=== PATIENT | male | born 1965 | race Caucasian/White ===

== ENCOUNTER 2025-04-26 19:36 | Inpatient (IN) | payer OTHER, SELFPAY ==
[2025-04-26] VITALS (13 sets, daily range): BP systolic 136–217; BP diastolic 80–127; BMI 42.8; BMI 41.6
[2025-04-26 15:44] LABS: Hematocrit 43.8 % (39.0-52.0); Hemoglobin 15.2 g/dL (13.0-18.0); Mean Corp Hgb Conc. 34.7 g/dL (33.0-37.0); Mean Corpuscular Volume 90.1 fL (80.0-94.0); Nucleated Red Blood Cells % 0 % (-); Platelet Count 291 10^3/uL (130-400); Red Cell Dist. Width 12.2 % (11.5-14.5)
[2025-04-26 16:00] LABS: ALT (SGPT) 62 U/L (0-50); AST (SGOT) 32 U/L (17-59); Albumin 4.6 g/dl (3.5-5.0); Alkaline Phosphatase 60 U/L (38-126); Blood Urea Nitrogen 19 mg/dl (9-20); Calcium 10.0 mg/dl (8.4-10.2); Carbon Dioxide 27 mmol/L (22-30); Glucose 123 mg/dl (70-99); Lipase 56 U/L (23-300); Total Protein 7.4 g/dl (6.3-8.2); eGFR > 60.00
[2025-04-26 16:08] LABS: Chloride 106 mmol/L (98-107); Sodium 140 mmol/L (135-145)
[2025-04-26 16:15] LABS: Potassium 3.8 mmol/L (3.5-5.1)
--- NOTE | 2025-04-26 17:20 | ED.GENMED ---
History of Present Illness
General
Chief Complaint: Rectal Bleeding
Source: patient and spouse
Exam Limitations: none
Time Seen by Provider: 04/26/25 16:58
Nursing documentation reviewed up to this point in time: agreed with
History of Present Illness
History of Present Illness:
Patient with history of hypertension, presents to ED secondary to multiple episodes of bright red blood per rectum with lower abdominal cramping sensation since this afternoon. Patient does not take any blood thinning medications. Denies nausea or
vomiting. Denies trauma. Denies previous history of similar symptoms. Denies recent change in medications or diet. Patient has had colonoscopy in the past, with most recent in 2019 secondary to hemorrhoids.
Review of Systems
Review of Systems
Allergies reviewed?: Yes
All Other Systems: ROS reviewed and negative except as documented in HPI and ROS
Constitutional: Reports no symptoms; Denies fever
Respiratory: Denies trouble breathing
Cardiac: Reports no symptoms
ABD/GI: Reports abdominal pain and bloody stools; Denies vomiting or diarrhea
Musculoskeletal: Reports no symptoms
Skin: Reports no symptoms
Neurological: Reports no symptoms; Denies dizzy or weakness
Phy Exam
Physical Exam
Physical Exam:
Physical Exam
General: no apparent distress, not acutely ill. afebrile
Head: nc/at. eomi
Neck: supple. no meningeal signs.
Heart: s1/s2 regular rate and rhythm
Lungs: no acute respiratory distress. clear bilaterally
Abdomen: normal bowel sounds. not tender. rectal exam-deferred
Neuro: alert and oriented x 3. no focal neurological deficits
Skin: no rash
Psychiatric: well kept. interactive and cooperative
Extremities: no edema. no calf tenderness.
Course
Orders/Labs/Results
Orders:
Orders
04/26/25 Dinner
Full Liquids
At Your Request: Full Participation
Does patient need a safe tray?: No
04/26/25 15:31
Type And Crossmatch [Type+Screen] Urgent
Complete Blood Count/With Diff Urgent
Comprehensive Metabolic Panel Urgent
Lipase Urgent
04/26/25 17:08
0.9% Sodium Chloride 500 ml [Nss] 500 ml IV BOLUS
Pantoprazole [Protonix IV] 40 mg IV NOW STA
04/26/25 17:09
CT Angio Abd/Pelvis w/wo IV [CT Abd/pelvis Angio W/wo Iv] Urgent
Comment:
Reason For Exam: rectal bleeding
04/26/25 17:21
ABO2 Routine
BBK Wristband Number:
Associate notified that ABO2 has been ordered: [id number]
Date: 04/26/25
Time: 15:52
Pot Operator ID: [id number]
04/26/25 17:49
Pantoprazole [Protonix IV] 40 mg IV NOW STA
04/26/25 17:50
Pantoprazole [Protonix IV] 40 mg .ROUTE .STK-MED ONE
04/26/25 19:11
Admit/Transfer Patient As Directed
Co-Sign Provider:
Level of Care: Inpatient admission
Assign to:: Medical/Surgical
Physician / Group: margaret escobar
Diagnosis: acute colitis
Reason for Hospitalization: acute colitis
Expected length of stay greater than two midnights?: Yes
ELOS- Estimated Length of Stay in days: 3
I certify the patient meets the requirements for IP care: Yes
Code Status As Directed
Resuscitation Status: Full Code
04/26/25 19:12
PRN Pain Medication Management As Directed
May give lesser potent ordered pain med per pt: Yes
preference::
Protocol:: Medication orders for pain may be administered in a
manner that supports deferring to patient preference
when the pt is:
- Requesting an ordered lesser potent pain medication.
Least to most potent pain medications are defined
as: acetaminophen < NSAID < tramadol < opioids
(morphine, oxycodone, hydromorphone).
- Requesting a lesser dose of the same medication IF
ORDERED.
- Requesting a less intrusive route of administration
if both routes are prescribed by the provider (PO <
IV).
04/26/25 19:13
Piperacillin/Tazo 3.375 Gram [Zosyn] 3.375 gram in 50 ml IV NOW
04/26/25 19:23
GASTROINTESTINAL CONSULT Routine
Consulting Provider: Víctor Rodriguez
Was physician already notified: Yes
Reason for consult: Left-sided colitis
04/26/25 21:01
Acetaminophen [Tylenol] 650 mg PO Q4HPRN PRN
04/26/25 21:01
Activity As Directed
Activity Level: As Tolerated
Pneumatic Compression Sleeves As Directed
Type: Knee high
Vital Signs As Directed
Frequency: Per unit guidelines
DX Deep Vein Thrombosis Video Routine
04/27/25 02:00
Piperacillin/Tazo 3.375 Gram [Zosyn] 3.375 gram in 50 ml IV Q6H
04/27/25 06:00
Basic Metabolic Panel IN AM
Complete Blood Count/With Diff IN AM
04/28/25 06:00
Basic Metabolic Panel IN AM
Complete Blood Count/With Diff IN AM
04/29/25 06:00
Basic Metabolic Panel IN AM
Complete Blood Count/With Diff IN AM
Abnormal Lab Results
04/26/25
15:31
WBC 11.1 H 10^3/uL
(4.8-10.8)
MCH 31.3 H pg
(27.0-31.0)
Absolute Neuts (auto) 8.8 H 10^3/uL
(1.4-6.5)
Absolute Monos (auto) 0.8 H 10^3/uL
(0.1-0.6)
Neutrophils % 79.2 H %
(42.2-75.2)
Lymphocytes % 12.4 L %
(20.5-51.1)
Creatinine 0.6 L mg/dL
(0.7-1.3)
Glucose 123 H mg/dl
(70-99)
ALT 62 H U/L
(0-50)
04/26/25 15:31
04/26/25 15:31
Vital Signs
Initial and Last Documented VS:
Initial Vital Signs
Temp Pulse Resp BP Pulse Ox
98.7 F 96 18 217/127 98
04/26/25 15:22 04/26/25 15:22 04/26/25 15:22 04/26/25 15:22 04/26/25 15:22
Last Documented Vital Signs
Temp Pulse Resp BP Pulse Ox
98.1 F 73 18 158/90 95
04/26/25 22:44 04/26/25 22:44 04/26/25 22:44 04/26/25 22:44 04/26/25 22:44
MDM/Problems Addressed
MDM/Problems Addressed:
History, exam, and CT scan consistent with likely colitis contributing to patient's multiple bloody bowel movements. Initial hemoglobin noted. Patient remains hemodynamically stable. Patient will be admitted for IV antibiotics. On-call GI
physician, Dr. Rodriguez, notified via [place] text.
*Pulse Oximetry
SaO2: 98
Oxygen Mode of Delivery: Room air
Patient hypoxic: no
*Critical Care Note
Total Time (30-74mins, 75-104mins- exclusive of procedures): Not Applicable
ED Attending Note
-
Portions of this chart may have been created with voice recognition software.� Occasional wrong word or��sound alike� substitutions may have occurred due to the inherent limitations of voice recognition software.
Discharge Plan
Departure
Patient Disposition: Admit
Date of Disposition: 04/26/25
Time of Disposition: 18:36
Admit to: Telemetry
Presentation/result/management discussed w/ accepting MD/DO: Hospitalist
Discharge Problem:
Rectal bleed, Colitis
Interventions
Interventions:
*Risk Screen - Suicide Last Done: 04/26/25 15:22
*General Assessment Last Done: 04/26/25 15:22
*Neglect/Abuse Screening Last Done: 04/26/25 15:22
*ED- Fall Risk Assessment Last Done: 04/26/25 17:57
*ED COVID-19 Vaccine History Last Done: 04/26/25 17:57
*Nursing Disposition Last Done: 04/26/25 22:41
PC-Etvlhx-Nwrwxgmtlf Assessment Last Done: 04/26/25 17:30
ED- Cardiac Assessment Last Done: 04/26/25 17:30
ED- Pulmonary Assessment Last Done: 04/26/25 17:30
Discharge Date and Time
Discharge Date/Time: 04/26/25 22:42
[2025-04-26] MEDS: NSS 500 IV (17:27)
[2025-04-26] MEDS: PROTONIX IV 40 MG IV ×2 (17:56→18:07)
--- NOTE | 2025-04-26 18:43 | HPS.HSE ---
Family Physician
-
Family Physician: Benigno May
Chief Complaint
-
Bright red blood per rectum
History of Present Illness
60-year-old male from home complaining of 10 episodes of bright red blood per rectum and lower abdominal cramping since this afternoon. He is not on any aspirin or NSAIDs. He denies fever, chills, chest pain, palpitations, cough, shortness of
breath, nausea, vomiting. He has past medical history of hemorrhoids, benign polyps history of colonoscopy 2019, HTN, seasonal allergies, vitamin D deficiency, class III obesity,History diverticulosis history of benign colon polyps follows with
Brandy at [facility]
Medical History
Past Medical History
Past Medical History: Reports Other
Additional Past Medical History:
hemorrhoids history of colonoscopy 2019
History diverticulosis history of benign colon polyps follows with Dr. Nava at [facility]
HTN
seasonal allergies
vitamin D deficiency
Class III obesity
Past Surgical History: Reports Other
Additional Past Surgical History:
Benign multiple dermal skin lesions to scalp
Bilateral CTR
Partial spinal discectomy T11-T12
Bilateral inguinal hernia repair with mesh
Right shoulder bicep repair and rotator cuff repair
Social History
Tobacco: Non-smoker
Alcohol: None
Drug: None
Personal:
Living: With Family ()
Employment: Employed
Family History
Family History: Not pertinent
Allergies / Home Medications
Allergies reflects when Allergies were last updated in AppSheet.
Home Medications with original date entered in AppSheet
Allergy/Medication List:
Allergies
Allergy/AdvReac Type Severity Reaction Status Date / Time
bee venom protein (honey bee) Allergy Unknown Verified 04/26/25 18:01
cat dander Allergy Unknown Verified 04/26/25 18:01
Home Medications
cholecalciferol (vitamin D3) 50 mcg (2,000 unit) capsule 50 mcg PO DAILY 04/26/25
fexofenadine 180 mg tablet 180 mg PO DAILYPRN PRN allergies 04/26/25
losartan 100 mg-hydrochlorothiazide 25 mg tablet (Hyzaar) 1 tab PO DAILY 04/26/25
jvgoblbsamqf-fzoqfouh-nmsfme tablet 1 tab PO DAILY 04/26/25
Review of Systems
-
History Source: Patient and Family ( at bedside)
A 12 point ROS was completed and negative except as noted: Yes
Constitutional: Denies Chills
EENT: Denies Sore Throat or Runny Nose
Respiratory: Denies Cough or Trouble Breathing
Cardiac: Denies Chest Pain, Diaphoresis, Palpitations or Syncope
Abdomen/GI: Reports Abdominal Pain (Left lower quadrant) and Bloody Stools (Bright red blood per rectum x 10); Denies Nausea, Vomiting, Diarrhea or Constipated
: Denies Dysuria, Frequency, Flank Pain, Incontinence, Difficulty Voiding or Urgency
Musculoskeletal: Denies Joint Pain or Edema
Skin: Denies Itching or Rash
Neurological: Denies Dizzy, Headache or Weakness
Endocrine: Reports No Symptoms
Hematologic/Lymphatic: Reports No Symptoms
Psych: Reports Calm
Physical Exam
Vital Signs
Vital Signs
Temp Pulse Resp BP Pulse Ox
98.7 F 71 18 151/85 93
04/26/25 15:22 04/26/25 18:29 04/26/25 17:28 04/26/25 18:30 04/26/25 18:29
Physical Exam
General: Conversant and Morbidly Obese; No Fever or Chills
HEENT: NormoCephalic, Anicteric, Moist mucous membranes, PERRLA, [place] Conjunctivae and No Ptosis
Respiratory: Clear; No Wheezes, Rales or Rhonchi
Cardiac: S1/S2 and Regular Rhythm; No Murmur, Rub, Gallop or Peripheral Edema
Breast: Deferred by me
GI: Soft, Tender (Left lower quadrant) and No Hepatosplenomegaly
Genito-urinary: Deferred by me
Musculoskeletal: No Clubbing, No Cyanosis and No Edema
Skin: Warm and Dry; No Rash
Neuro: AO x 3, No Motor Deficits, Nonfocal/grossly intact, Cranial Nerves Intact and No Sensory Deficits; No Facial Droop, Tremors or Sedated
Psych: Calm
Laboratory Results
-
04/26/25 15:31
04/26/25 15:31
Laboratory Results
Total Bilirubin 0.7 mg/dl (0.2-1.3) 04/26/25 15:31
AST 32 U/L (17-59) 04/26/25 15:31
ALT 62 U/L (0-50) H 04/26/25 15:31
Alkaline Phosphatase 60 U/L (38-126) 04/26/25 15:31
Lipase 56 U/L (23-300) 04/26/25 15:31
Impression/Plan
-
Impression/plan:
Admit to [facility]
#Acute left-sided colitis with bright red blood per rectum
#History diverticulosis history of benign colon polyps follows with Dr. Nava at [facility]
WBC 11.1 with left shift, 98.7F
Hgb stable 15.2
-IV Zosyn
- Full liquid diet
CT abdomen pelvis with without IV contrast:
1. No CTA evidence for active GI bleed. No abdominal aortic aneurysm or dissection.
2. Acute uncomplicated left-sided colitis, likely of infectious/inflammatory etiology.
#HTN
BP 151/85
Continue losartan hold HCTZ
#Seasonal allergies
Continue Lindsay 180 mg daily as needed
#Vitamin D deficiency
Continue vitamin D3 2000 units daily
Class III obesity�BMI 42.8
Affects all aspects of care
Weight loss recommended
DVT prophylaxis
SCDs
Full code
--- NOTE | 2025-04-26 19:26 | W.PN.UPDATE ---
Update Note
Progress Note Update
This is an addendum to H&P written by Magi Maurer on 04/26/2025. �Patient seen and examined independently with DIPPER OPERATOR.
60-year-old male past medical history of hemorrhoids, diverticulosis, hypertension, presenting with 10 episodes of bright red blood per rectum and lower abdominal cramping.
Blood pressure initially 217/127 improved to 151/85.
Labs show leukocytosis.
CT angio abdomen pelvis shows no active evidence of GI bleeding. �There is acute uncomplicated left-sided colitis.
Patient with acute left-sided colitis with hematochezia possibly infectious. �Check stool studies. �Zosyn started. �GI consulted. Full Liquid diet.�
[2025-04-26] MEDS: ZOSYN 50 IV (19:47)
[2025-04-27] MEDS: ZOSYN 50 IV ×4 (02:16→21:33)
[2025-04-27 06:28] LABS: Hematocrit 40.8 % (39.0-52.0); Hemoglobin 14.0 g/dL (13.0-18.0); Mean Corp Hgb Conc. 34.3 g/dL (33.0-37.0); Mean Corpuscular Volume 90.7 fL (80.0-94.0); Nucleated Red Blood Cells % 0 % (-); Platelet Count 240 10^3/uL (130-400); Red Cell Dist. Width 12.6 % (11.5-14.5)
[2025-04-27 06:55] LABS: Blood Urea Nitrogen 17 mg/dl (9-20); Calcium 9.2 mg/dl (8.4-10.2); Carbon Dioxide 29 mmol/L (22-30); Chloride 105 mmol/L (98-107); Estimated Creatinine Clearance > 125 ml/min; Glucose 144 mg/dl (70-99); Potassium 3.7 mmol/L (3.5-5.1); Sodium 130 mmol/L (135-145); eGFR > 60.00
[2025-04-27 07:00] VITALS: BP 155/91
--- NOTE | 2025-04-27 08:34 | W.PN.HOSP.TC ---
Today's Communication/Plan
-
see a/p
Assessment / Plan
Assessment / Plan
Physical Exam
General: no acute distress, appears comfortable at this time, Morbidly Obese
HEENT: NormoCephalic, Anicteric, Moist mucous membranes, PERRLA, [place] Conjunctivae and No Ptosis
Respiratory: Clear; No Wheezes, Rales or Rhonchi
Cardiac: S1/S2 and Regular Rhythm; No Murmur, Rub, Gallop or Peripheral Edema
GI: Soft, Tender (Left lower quadrant) and No Hepatosplenomegaly
Musculoskeletal: No Clubbing, No Cyanosis and No Edema
Skin: Warm and Dry; No Rash
Neuro: AO x 3 Conversant Coherent
Psych: Calm
HPI: 60-year-old male from home complaining of 10 episodes of bright red blood per rectum and lower abdominal cramping since this afternoon. He is not on any aspirin or NSAIDs. He denies fever, chills, chest pain, palpitations, cough, shortness of
breath, nausea, vomiting. He has past medical history of hemorrhoids, benign polyps history of colonoscopy 2019, HTN, seasonal allergies, vitamin D deficiency, class III obesity,History diverticulosis history of benign colon polyps follows with
Brandy at [facility]
#Acute left-sided colitis with bright red blood per rectum
#History diverticulosis history of benign colon polyps follows with Dr. Nava at [facility]
-empiric IV Zosyn
-Full liquid diet
CT abdomen pelvis with without IV contrast:
1. No CTA evidence for active GI bleed. No abdominal aortic aneurysm or dissection.
2. Acute uncomplicated left-sided colitis, likely of infectious/inflammatory etiology.
#HTN
Continue losartan HCTZ reduced dose for now
hydralazine prn
#Seasonal allergies
#Vitamin D deficiency
Continue supplementation
Class III obesity�BMI 42.8
Affects all aspects of care
Weight loss recommended
DVT prophylaxis
SCDs
Full code
I spent a total of 45 minutes with the patient or on the floor. More than 50% of this time involved counseling and coordination of care.
Anticipated Discharge: 24 - 48 hours
Subjective/Interval History
-
Date of Service: April 27, 2025
No acute distress, appears comfortable at this time. Reports headache and recent small bloody bowel movement. Tolerating diet.
Objective Data
-
Labs:
Laboratory Results
04/27/25
06:07
WBC 7.6
Hgb 14.0
Hct 40.8
Plt Count 240
Sodium 130 L D
Potassium 3.7
Chloride 105
Carbon Dioxide 29
BUN 17
Creatinine 0.7
Glucose 144 H
Calcium 9.2
Vital Signs:
Vital Signs
Temp Pulse Resp BP Pulse Ox
97.9 F 66 20 155/91 93
04/27/25 07:00 04/27/25 07:00 04/27/25 07:00 04/27/25 07:00 04/27/25 07:00
[2025-04-27] MEDS: TYLENOL 1000 MG PO (11:41)
[2025-04-27] MEDS: ORETIC 12.5 MG PO (11:41)
[2025-04-27] MEDS: COZAAR 50 MG PO (11:41)
--- NOTE | 2025-04-27 13:32 | CM ---
Patient seen at bedside with Kerrie
IA completed
lives with in a 2 story home, 2 MAHESH, flight to bed/bath
PLOF: independent
Denies DME
Denies VN/Rehab
Denies insecurities
PCP: Benigno May Jr.
Pharmacy: [address], [place]
Plan: Home, no needs anticipated when stable
will transport
--- NOTE | 2025-04-27 13:51 | CON.GI ---
Consultation
-
Date/Time Consultation Requested: 04/26/25, 19:23
Date/Time Consultation Performed: 04/26/25, 1:52 PM
Requesting Provider: FLORES Ortega
Performing Provider: Dr. Víctor Rodriguez DO
Reason for Consultation: Bloody stools, c/f colitis
Medical History
Chief Complaint / HPI
Chief Complaint: BRBPR
History of Present Illness:
Mr. Landon is a 60 y.o male with a past medical history of HTN, obesity, colon polyps, and history of diverticulosis who presented with multiple episodes of bright red blood per rectum. Gastroenterology has been consulted for further evaluation
and management.
Patient states he was in his USOH until yesterday afternoon when he began experiencing lower abdominal discomfort, cramping and multiple episodes of bright red blood per rectum. He denies ever having symptoms like this in the past. No other NSAIDs
or blood thinners. He denies any recent or new medications or prior antibiotics. No travel history or other known sick contacts. No other fevers, chills, night sweats or other constitutional symptoms. Denies any lightheadedness or passing out or
dehydration. Denies any unintentional weight loss. He notes a prior colonoscopy about 5 years who in 2019 which was reportedly significant for hemorrhoids and benign colon polyps. He follows with Dr Nava at [place] (colorectal). Denies any
family history of CRC or IBD. Notes that given his ongoing worsening symptoms, he came into the ED for further evaluation.
In the ED, patient was afebrile and HD-stable. Labs grossly unremarkable except for CBC with WBC 11.[address] Abd/pelvis Angio WWO contrast was (-) for active GI bleed, only revealing acute, uncomplicated left-sided colitis, felt to be
infectious/inflammatory etiology. Patient was admitted to medicine and started on IV abx.
Past Medical History
Past Medical History: Other (History diverticulosis history of benign colon polyps follows with Dr. Nava at [place] colorectal HTN seasonal allergies vitamin D deficiency Class III obesity)
Past Surgical History: Other (Benign multiple dermal skin lesions to scalp Bilateral CTR Partial spinal discectomy T11-T12 1990s Bilateral inguinal hernia repair with mesh Right shoulder bicep repair and rotator cuff repair)
Social History
Tobacco: Non-Smoker
Alcohol: Occasional
Family History
Family History: Other (No family hx of CRC or IBD)
Allergies / Home Medications
Allergy/AdvReac Type Severity Reaction Status Date / Time
bee venom protein (honey bee) Allergy Unknown Verified 04/26/25 18:01
cat dander Allergy Unknown Verified 04/26/25 18:01
�Medication �Instructions �Recorded
cholecalciferol (vitamin D3) 50 50 mcg PO DAILY 04/26/25
mcg (2,000 unit) capsule
fexofenadine 180 mg tablet 180 mg PO DAILYPRN PRN allergies 04/26/25
losartan 100 1 tab PO DAILY 04/26/25
mg-hydrochlorothiazide 25 mg
tablet (Hyzaar)
sqjtoknffdbl-yfwqjdbq-xwxouj tablet 1 tab PO DAILY 04/26/25
Review of Systems
-
All other systems: A 12 pt ROS was Negative except as stated above in HPI
Vital Signs
Temp Pulse Resp BP Pulse Ox
97.9 F 73 20 149/95 93
04/27/25 07:00 04/27/25 11:41 04/27/25 07:00 04/27/25 11:41 04/27/25 07:00
Physical Exam
Exam
General: Other (Obese male, comfortable appearing in bed)
HEENT: Normocephalic, Anicteric and Moist Mucous Membranes
Respiratory: Other (Normal WOB on room air)
Cardiac: Regular Rhythm
GI: Soft, Non Tender and Non Distended
Skin: Warm
Neuro: AO x 3 and Nonfocal/Grossly Intact
Psych: Calm
Results
WBC 7.6 10^3/uL (4.8-10.8) 04/27/25 06:07
Hgb 14.0 g/dL (13.0-18.0) 04/27/25 06:07
Hct 40.8 % (39.0-52.0) 04/27/25 06:07
MCV 90.7 fL (80.0-94.0) 04/27/25 06:07
Plt Count 240 10^3/uL (130-400) 04/27/25 06:07
Absolute Neuts (auto) 4.8 10^3/uL (1.4-6.5) 04/27/25 06:07
Sodium 130 mmol/L (135-145) L D 04/27/25 06:07
Potassium 3.7 mmol/L (3.5-5.1) 04/27/25 06:07
Chloride 105 mmol/L (98-107) 04/27/25 06:07
Carbon Dioxide 29 mmol/L (22-30) 04/27/25 06:07
BUN 17 mg/dl (9-20) 04/27/25 06:07
Creatinine 0.7 mg/dL (0.7-1.3) 04/27/25 06:07
Calcium 9.2 mg/dl (8.4-10.2) 04/27/25 06:07
Total Bilirubin 0.7 mg/dl (0.2-1.3) 04/26/25 15:31
AST 32 U/L (17-59) 04/26/25 15:31
ALT 62 U/L (0-50) H 04/26/25 15:31
Alkaline Phosphatase 60 U/L (38-126) 04/26/25 15:31
Lipase 56 U/L (23-300) 04/26/25 15:31
Diagnostic Image Results:
Prior GI Procedures:
Colonoscopy: No prior colonoscopy records for review, previous colonoscopy back in 2019 with polyps, diverticulosis and hemorrhoids
Assessment / Plan
-
Mr. Landon is a 60 y.o male with a past medical history of HTN, obesity, colon polyps, and history of diverticulosis who presented with multiple episodes of bright red blood per rectum with CT imaging demonstrating acute, uncomplicated left-sided
colitis. Gastroenterology has been consulted for further evaluation and management.
#Acute, Left-sided Colitis
#Bloody Stools
Impression: Patient presenting with abdominal discomfort and bloody stools found to have mild leukocytosis with left shift and CT imaging demonstrating mild, uncomplicated left-sided colitis. No chronicity of symptoms or previous similar symptoms in
the past. Last colonoscopy in 2019 with polyps, diverticulosis and hemorrhoids (no records of this). Denies any family history of IBD or CRC. Etiology seems most consistent with acute, infectious colitis given the acuity of symptoms versus ischemia
given his discomfort/bloody stools although not hypotensive/dehydrated. Much less likely IBD given his clinical presentation. Labs are grossly unremarkable and stable Hgb without any large volume hematochezia.
Recommendations:
- Okay for full liquids, may ADAT to low-fiber, low-residue diet as tolerated
- Please obtain stool studies if able to have a BM- stool culture, stool O&P, and C Diff
- Repeat LFTs in AM given mildly elevated ALT suspicious for MASLD/MASH given hepatic steatosis seen on CT
- Trend Hgb with serial CBC, although Hgb appears stable
- Started on empiric IV abx on admission
- No plans for a colonoscopy at this time given his reassuring labs, however would likely benefit from one as an outpatient
- Pain control and anti-emetics PRN
- Strict avoidance of all NSAIDs
- Rest of care as per primary team
GI will continue to follow. Please contact with any questions or concerns.
Data Reviewed
-
Radiology: Image Personally Visualized and interpreted and Report Reviewed by me
CT Scan: Image Personally Visualized and interpreted and Report Reviewed by me
-
-
Thank you for consultation and allowing me to participate in the patient's care. Please call the mass communications professor GI physician during the after hours with any questions or concerns.
[2025-04-27 15:00] VITALS: BP 156/90
--- NOTE | 2025-04-27 19:30 | PTCARENOTE ---
Assumed care of patient from previous RN. Patient to be transferred to telemetry per MD orders. Following rounds, patient placed on monitor car operator for PRN meds for BP. Initiated on monitor car operator #[id number] - maintained. At this time, patient reports
another BM in hat in bathroom -- bloody/mucous present. Patient states that this has been what they have looked like all day. Small amount. Stool cultures pending.
[2025-04-27 23:00] VITALS: BP 130/67
[2025-04-28] VITALS (7 sets, daily range): BP systolic 120–190; BP diastolic 71–97
[2025-04-28] MEDS: ZOSYN 50 IV ×2 (01:45→09:06)
--- NOTE | 2025-04-28 06:19 | W.PN.GI.CBS2 ---
Today's Communication / Plan
-
Improving on IV abx and likely acute infectious given symptoms. Given reassuring labs without further bloody stools/diarrhea, no plans for an inpatient colonoscopy. Reasonable to d/c later this afternoon versus tomorrow with close f/u with his
primary [facility] at [facility] (f/w with Dr Nava at [facility]). See rest of care as outlined below. GI will sign-off, please call back with any questions or concerns.
Assessment / Plan
-
Mr. Landon is a 60 y.o male with a past medical history of HTN, obesity, colon polyps, and history of diverticulosis who presented with multiple episodes of bright red blood per rectum with CT imaging demonstrating acute, uncomplicated left-sided
colitis. Gastroenterology has been consulted for further evaluation and management.
#Acute, Left-sided Colitis
#Bloody Stools
Impression: Patient presenting with abdominal discomfort and bloody stools found to have mild leukocytosis with left shift and CT imaging demonstrating mild, uncomplicated left-sided colitis. No chronicity of symptoms or previous similar symptoms in
the past. Last colonoscopy in 2020 with polyps, diverticulosis and hemorrhoids (no records of this). Denies any family history of IBD or CRC. Etiology seems most consistent with acute, infectious colitis given the acuity of symptoms versus ischemia
given his discomfort/bloody stools although not hypotensive/dehydrated. Much less likely IBD given his clinical presentation. Labs are grossly unremarkable and stable Hgb without any large volume hematochezia.
Stool studies: Moderate fecal leukocytes, C Diff (-), Cryptosporidium/giardia (-), and stool culture pending
Recommendations:
- May ADAT to low-fiber, low-residue diet
- Await rest of stool studies including stool culture
- Favor continuing empiric antibiotics given his resolved bloody stools and likely infectious and having more semi-formed brown stools
- No plans for an inpatient colonoscopy at this time. However, would benefit from an eventual colonoscopy as an outpatient in 6-8 weeks
- Fortunately, he has follow-up with his primary GI at [facility] this upcoming Wednesday for an appointment. Discussed close f/u and again will need an eventual colonoscopy to f/u his previous colitis
- May discharge with empiric oral antibiotics with Augmentin for 10 day course
- Advised avoidance of all NSAIDs
- Pain control and anti-emetics PRN
- Rest of care as per primary team
If ongoing improvement this afternoon and tolerating diet, reasonable to discharge later today. GI will sign-off. Please call back with any questions or concerns.
Subjective
Subjective
Date of Service: April 28, 2025
- Stool studies: Moderate fecal leukocytes, C Diff (-), Cryptosporidium/giardia (-), and stool culture pending
- Remains on IV Zosyn
- Otherwise, no acute events overnight
Feeling well, reports improving symptoms with antibiotics. No further bloody stools, having more semi-formed brown bowel movements (shows picture on phone). Otherwise, denies any abdominal pain or other nausea/vomiting.
Objective
Data Reviewed
Laboratory Data:
Laboratory Results
Total Bilirubin 0.7 mg/dl (0.2-1.3) 04/26/25 15:31
AST 32 U/L (17-59) 04/26/25 15:31
ALT 62 U/L (0-50) H 04/26/25 15:31
Alkaline Phosphatase 60 U/L (38-126) 04/26/25 15:31
Lipase 56 U/L (23-300) 04/26/25 15:31
Vital Signs and I&O:
Vital Signs
Temp Pulse Resp BP Pulse Ox
97.3 F 62 18 120/71 100
04/28/25 03:00 04/28/25 03:00 04/28/25 03:00 04/28/25 03:00 04/28/25 03:00
I&O
04/26/25 04/27/25 04/28/25
06:59 06:59 06:59
Intake Total 1440 / 1440
Balance 1440 / 1440
Physical Exam
Physical Exam
HEENT: Anicteric and Moist mucous membranes
Pulmonary: Other (Normal WOB on room air)
GI: Soft, Non Distended and Non Tender
Extremities: No Edema
Neuro: Non Focal
[2025-04-28 06:31] LABS: Hematocrit 42.2 % (39.0-52.0); Hemoglobin 14.3 g/dL (13.0-18.0); Mean Corp Hgb Conc. 33.9 g/dL (33.0-37.0); Mean Corpuscular Volume 90.6 fL (80.0-94.0); Nucleated Red Blood Cells % 0 % (-); Platelet Count 264 10^3/uL (130-400); Red Cell Dist. Width 12.5 % (11.5-14.5)
[2025-04-28 07:01] LABS: ALT (SGPT) 65 U/L (0-50); AST (SGOT) 30 U/L (17-59); Albumin 4.2 g/dl (3.5-5.0); Alkaline Phosphatase 57 U/L (38-126); Blood Urea Nitrogen 12 mg/dl (9-20); Calcium 9.0 mg/dl (8.4-10.2); Carbon Dioxide 27 mmol/L (22-30); Chloride 104 mmol/L (98-107); Estimated Creatinine Clearance 122 ml/min; Glucose 132 mg/dl (70-99); Magnesium 2.2 mg/dl (1.6-2.3); Potassium 4.0 mmol/L (3.5-5.1); Sodium 138 mmol/L (135-145); Total Protein 6.5 g/dl (6.3-8.2); eGFR > 60.00
--- NOTE | 2025-04-28 08:36 | W.PN.HOSP.TC ---
Today's Communication/Plan
-
Low residue diet
IV abx transitioned to Augmentin
Blood pressure control, home hyzaar POM resumed
possible discharge tomorrow if remains stable/cont to improve
Assessment / Plan
Assessment / Plan
Physical Exam
General: no acute distress, appears comfortable at this time, Morbidly Obese
HEENT: NormoCephalic, Anicteric, Moist mucous membranes, PERRLA, [place] Conjunctivae and No Ptosis
Respiratory: Clear; No Wheezes, Rales or Rhonchi
Cardiac: S1/S2 and Regular Rhythm; No Murmur, Rub, Gallop or Peripheral Edema
GI: Soft, Tender (Left lower quadrant) and No Hepatosplenomegaly
Musculoskeletal: No Clubbing, No Cyanosis and No Edema
Skin: Warm and Dry; No Rash
Neuro: AO x 3 Conversant Coherent
Psych: Calm
HPI: 60-year-old male from home complaining of 10 episodes of bright red blood per rectum and lower abdominal cramping since this afternoon. He is not on any aspirin or NSAIDs. He denies fever, chills, chest pain, palpitations, cough, shortness of
breath, nausea, vomiting. He has past medical history of hemorrhoids, benign polyps history of colonoscopy 2019, HTN, seasonal allergies, vitamin D deficiency, class III obesity,History diverticulosis history of benign colon polyps follows with
Brandy at [facility]
#Acute left-sided colitis with bright red blood per rectum
#History diverticulosis history of benign colon polyps follows with Dr. Nava at [facility]
-empiric IV Zosyn transitioned to Augmentin, planned for total 10 day course abx
-Full liquid diet advanced to low residue, tolerating
CT abdomen pelvis with without IV contrast:
1. No CTA evidence for active GI bleed. No abdominal aortic aneurysm or dissection.
2. Acute uncomplicated left-sided colitis, likely of infectious/inflammatory etiology.
#HTN
home hyzaar resumed, patient's own med
hydralazine prn
#Seasonal allergies
#Vitamin D deficiency
Continue supplementation
Class III obesity�BMI 42.8
Affects all aspects of care
Weight loss recommended
DVT prophylaxis
SCDs
Full code
I spent a total of 45 minutes with the patient or on the floor. More than 50% of this time involved counseling and coordination of care.
Anticipated Discharge: Within 24 hours
Subjective/Interval History
-
Date of Service: April 28, 2025
No acute distress, appears comfortable. Reports improving bloody bowel movements (icing coater color more brown).
Objective Data
-
Labs:
Laboratory Results
04/28/25
06:10
WBC 8.5
Hgb 14.3
Hct 42.2
Plt Count 264
Sodium 138 D
Potassium 4.0
Chloride 104
Carbon Dioxide 27
BUN 12
Creatinine 0.8
Glucose 132 H
Calcium 9.0
Total Bilirubin 0.8
AST 30
ALT 65 H
Alkaline Phosphatase 57
Vital Signs:
Vital Signs
Temp Pulse Resp BP Pulse Ox
97.7 F 86 18 168/89 95
04/28/25 08:00 04/28/25 08:00 04/28/25 08:00 04/28/25 08:00 04/28/25 08:00
I&O
04/27/25 04/28/25 04/29/25
06:59 06:59 06:59
Intake Total 1440 / 1440 620 / 620
Balance 1440 / 1440 620 / 620
[2025-04-28] MEDS: VITAMIN D3 (cholecalciferol) 50 MCG PO (09:05)
[2025-04-28] MEDS: THERAGRAN 1 TABLET PO (09:05)
[2025-04-28] MEDS: NON-FORMULARY ITEM 1 TABLET PO (12:51)
--- NOTE | 2025-04-28 17:42 | PTCARENOTE ---
at 11:00 b/p 190/97.asymptomatic. patient refused Cozaar and Oretic this am as he takes Hyzaar on daily basis and reports that's the only thing that has worked for his b/p. Dr. Lucero ordered Hyzaar and his brought in med from home. pharmacy
verified med and it was given. at 13:50 143/78, will continue to monitor.
[2025-04-28] MEDS: AUGMENTIN 875 MG/125 MG 1 TABLET PO (21:17)
[2025-04-28] MEDS: FLORASTOR 250 MG PO (21:17)
[2025-04-29 03:00] VITALS: BP 120/73
[2025-04-29 07:00] VITALS: BP 153/82
[2025-04-29 07:02] LABS: Hematocrit 45.9 % (39.0-52.0); Hemoglobin 15.6 g/dL (13.0-18.0); Mean Corp Hgb Conc. 34.0 g/dL (33.0-37.0); Mean Corpuscular Volume 90.5 fL (80.0-94.0); Nucleated Red Blood Cells % 0 % (-); Platelet Count 284 10^3/uL (130-400); Red Cell Dist. Width 12.3 % (11.5-14.5)
[2025-04-29 07:11] LABS: Blood Urea Nitrogen 16 mg/dl (9-20); Calcium 9.7 mg/dl (8.4-10.2); Carbon Dioxide 28 mmol/L (22-30); Chloride 103 mmol/L (98-107); Estimated Creatinine Clearance > 125 ml/min; Glucose 133 mg/dl (70-99); Magnesium 2.4 mg/dl (1.6-2.3); Potassium 4.3 mmol/L (3.5-5.1); Sodium 139 mmol/L (135-145); eGFR > 60.00
--- NOTE | 2025-04-29 07:49 | W.PN.HOSP.TC ---
Addendum entered and electronically signed by Artemio Lucero MD 04/29/25 13:04:
correction Shigella Neg, pending Shiga toxin
Original Note:
Today's Communication/Plan
-
discharge
Assessment / Plan
Assessment / Plan
Physical Exam
General: no acute distress, appears comfortable at this time, Morbidly Obese
HEENT: NormoCephalic, Anicteric, Moist mucous membranes, PERRLA, [place] Conjunctivae and No Ptosis
Respiratory: Clear; No Wheezes, Rales or Rhonchi
Cardiac: S1/S2 and Regular Rhythm; No Murmur, Rub, Gallop or Peripheral Edema
GI: Soft, Tender (Left lower quadrant) and No Hepatosplenomegaly
Musculoskeletal: No Clubbing, No Cyanosis and No Edema
Skin: Warm and Dry; No Rash
Neuro: AO x 3 Conversant Coherent
Psych: Calm
HPI: 60-year-old male from home complaining of 10 episodes of bright red blood per rectum and lower abdominal cramping since this afternoon. He is not on any aspirin or NSAIDs. He denies fever, chills, chest pain, palpitations, cough, shortness of
breath, nausea, vomiting. He has past medical history of hemorrhoids, benign polyps history of colonoscopy 2019, HTN, seasonal allergies, vitamin D deficiency, class III obesity,History diverticulosis history of benign colon polyps follows with .
Brandy at [facility]
#Acute left-sided colitis, Infectious, with bright red blood per rectum
#History diverticulosis history of benign colon polyps follows with Dr. Nava at [facility]
-empiric IV Zosyn transitioned to Augmentin, planned for total 10 day course abx
-Full liquid diet advanced to low residue, tolerating
CT abdomen pelvis with without IV contrast:
1. No CTA evidence for active GI bleed. No abdominal aortic aneurysm or dissection.
2. Acute uncomplicated left-sided colitis, likely of infectious/inflammatory etiology.
-Stool studies largely neg, including Cdiff, Shigella remains pending
-GI nga appreciated follow with his GI Doctor at [facility] for outpt colonoscopy in 6-8 weeks recommended, 10 day course Augmentin recommended. Avoid NSAIDs
#HTN
home hyzaar resumed, patient's own med
hydralazine prn
#Seasonal allergies
#Vitamin D deficiency
Continue supplementation
Class III obesity�BMI 42.8
Affects all aspects of care
Weight loss recommended
DVT prophylaxis
SCDs
Full code
Medically stable for discharge home with outpatient follow up recommendations.
Total Time Preparing Discharge __40 minutes including examination of the patient, summary of the hospital stay, instructions for continuing care to all relevant caregivers; and preparation of discharge records, prescriptions, and referral
forms if necessary.
Anticipated Discharge: Today
Subjective/Interval History
-
Date of Service: April 29, 2025
Seen and examined at bedside in no acute distress sitting up comfortably chair. Overall reports feeling well. Bloody bowel movements resolved. Looking forward to going home.
Objective Data
-
Labs:
Laboratory Results
04/29/25
06:18
WBC 9.7
Hgb 15.6
Hct 45.9
Plt Count 284
Sodium 139
Potassium 4.3
Chloride 103
Carbon Dioxide 28
BUN 16
Creatinine 0.7
Glucose 133 H
Calcium 9.7
Vital Signs:
Vital Signs
Temp Pulse Resp BP Pulse Ox
97.6 F 61 20 153/82 96
04/29/25 07:00 04/29/25 07:00 04/29/25 07:00 04/29/25 07:00 04/29/25 07:00
I&O
04/28/25 04/29/25 04/30/25
06:59 06:59 06:59
Intake Total 1440 / 1440 2240 / 2240
Output Total 125 / 125
Balance 1440 / 1440 2114 / 2114
[2025-04-29] MEDS: FLORASTOR 250 MG PO (08:37)
[2025-04-29] MEDS: AUGMENTIN 875 MG/125 MG 1 TABLET PO (08:37)
[2025-04-29] MEDS: VITAMIN D3 (cholecalciferol) 50 MCG PO (08:37)
[2025-04-29] MEDS: THERAGRAN 1 TABLET PO (08:37)
[2025-04-29] MEDS: NON-FORMULARY ITEM 1 TABLET PO (08:37)
[2025-04-29] MEDS: TYLENOL 650 MG PO (09:04)
[2025-04-29 11:00] VITALS: BP 144/79
--- NOTE | 2025-04-29 11:44 | CM ---
Addendum entered by Janelle Stockton 04/29/25 13:15:
IMM n/a
Original Note:
Patient seen at bedside
Low residue diet
IV abx transitioned to Augmentin
PLAN: home, no needs when stable
to transport
--- NOTE | 2025-04-29 13:03 | W.DCSUMMARY ---
Discharge Summary
Discharge Data
Date of Admission: 04/26/25
Date of Discharge: 04/29/25
-
Pending Results: Yes (shiga toxin)
Hospital Course
60M p/w 10 episodes of bright red blood per rectum and lower abdominal cramping. He was not on any aspirin or NSAIDs. He denied fever, chills, chest pain, palpitations, cough, shortness of breath, nausea, vomiting. He had past medical history of
hemorrhoids, benign polyps history of colonoscopy 2019, HTN, seasonal allergies, vitamin D deficiency, class III obesity, History diverticulosis, history of benign colon polyps, follows with Dr. Nava at [facility]. Acute left-sided
colitis, Infectious, with bright red blood per rectum, treated with empiric IV Zosyn transitioned to Augmentin, planned for total 10 day course abx. Full liquid diet advanced to low residue, tolerated.
CT abdomen pelvis with without IV contrast:
1. No CTA evidence for active GI bleed. No abdominal aortic aneurysm or dissection.
2. Acute uncomplicated left-sided colitis, likely of infectious/inflammatory etiology.
Stool studies largely neg, including Cdiff. GI eval appreciated recommended follow up with his GI Doctor at [facility] for outpt colonoscopy in 6-8 weeks, 10 day course Augmentin recommended. Avoid NSAIDs. Medically stable, symptoms improving,
patient was discharged home with outpatient follow up recommendations.
Discharge Plan
-
Patient Disposition: Home (Routine Discharge)
Discharge Diagnosis/Procedures: Acute left-sided colitis, Infectious, with bright red blood per rectum
Hypertension
Obesity
Condition: Fair
Diet: Low Residue
Additional Diets: ok to advance diet as tolerated
Activity: As tolerated
Driving Restrictions: As prior to admission
Bathing Restrictions: None
Others Tests: Follow up with your GI doctor to schedule outpatient colonoscopy in 6-8 weeks of discharge.
Activity Restrictions/Additional Instructions:
Follow up with primary care provider and GI in 1 week of discharge.
Augmentin prescribed to treat Infectious Colitis. Morning 04/07/25 is your last dose for antibiotics, then stop.
Florastor has been prescribed to promote gut health while on antibiotics. This is available over the counter. Ok to stop when off antibiotics.
Avoid NSAIDs (such as aspirin, ibuprofen, meloxicam, naproxen, etc) due to recent colitis, bright red blood per rectum.
Please take medications as prescribed/recommended and follow up with primary care provider and/or other healthcare provider involved in your care for further adjustments to your medication regimen as necessary.
Referrals:
Benigno May Jr., DO [Family Provider, [facility]] - in one week
Prescriptions:
New
amoxicillin-pot clavulanate 875-125 mg Tablet
1 tab PO Q12 Qty: 18 0RF
Rx Instructions:
Continue antibiotics through morning 04/07/25 then stop
Saccharomyces boulardii 250 mg Capsule
250 mg PO BID Qty: 20 0RF
Rx Instructions:
To promote gut health while on antibiotics
Ok to stop when off antibiotics.
Continued
fexofenadine 180 mg Tablet
180 mg PO DAILYPRN PRN (Reason: allergies)
losartan-hydrochlorothiazide [Hyzaar] 100-25 mg Tablet
1 tab PO DAILY
pvjhqzdikfgo-cdzhfoag-xukxem Tablet
1 tab PO DAILY
cholecalciferol (vitamin D3) 50 mcg (2,000 unit) Capsule
50 mcg PO DAILY
Discharge Orders:
Discharge Patient (As Directed); Ordered 04/29/25
Ordered By: Artemio Lucero
Discharge Date and Time
Discharge Date/Time: 04/29/25 14:23
Print Language: FAROESE
== END 2025-04-29 14:23 | disposition home or self-care (01) | DRG 386 ==
LOC: 3 WEST ACU 19:36
PROVIDERS: Clinical Nurse Specialist Family Health; Student in an Organized Health Care Education/Training Program; ADMITTING PHYSICIAN Hospitalist; ATTENDING PHYSICIAN Internal Medicine; CONSULT PHYSICIAN Student in an Organized Health Care Education/Training Program; EMERGENCY PHYSICIAN Emergency Medicine; FAMILY PHYSICIAN Family Medicine
DX: K51.50 Left sided colitis without complications (principal); A09 Infectious gastroenteritis and colitis, unspecified; Z68.41 Body mass index [BMI] 40.0-44.9, adult; E55.9 Vitamin D deficiency, unspecified; E66.813 Obesity, class 3; I10 Essential (primary) hypertension; J30.2 Other seasonal allergic rhinitis; K57.30 Diverticulosis of large intestine without perforation or abscess without bleeding; Z86.0100 Personal history of colon polyps, unspecified; Z79.899 Other long term (current) drug therapy
CPT/HCPCS: 74174; 80048; 80053; 83690; 83735; 84100; 85025; 86850; 86900; 86901; 87045; 87046; 87324; 87328; 87329; 87427; 87449; 89055; 96361; 96365; 96375; 96376; 99284; Q9967

== ENCOUNTER 2025-09-13 11:33 | Emergency (ER) | payer OTHER, SELFPAY ==
[2025-09-13 11:46] VITALS: BP 161/86
--- NOTE | 2025-09-13 12:08 | ED.GENMED ---
History of Present Illness
General
Chief Complaint: Musculo-Skeletal Complaint
Time Seen by Provider: 09/13/25 11:56
History of Present Illness
History of Present Illness:
60-year-old male presents to the emergency department for evaluation of acute on chronic low back pain. Has known history of degenerative disc disease, previously has required thoracic discectomy in the , currently following with [facility]
orthopedics. Last MRI was approximately 6 to 8 months ago although results were not immediately available and the patient did not provide them for me. He has been undergoing epidural injections through orthopedics and is planned for 1 in 1 week.
He is also scheduled for MRI at the end of the month. Completed a course of steroids 2 days ago and pain began again yesterday. He is unable to walk and feels weakness in the left leg. Has tingling with no overt numbness, denies saddle anesthesia
or urinary retention/incontinence. Took tramadol without relief.
Review of Systems
Review of Systems
Allergies reviewed?: Yes
All Other Systems: ROS reviewed and negative except as documented in HPI and ROS
Phy Exam
Physical Exam
Physical Exam:
GEN: Well appearing, NAD, WDWN
HEENT: Oral mucosa moist, no scleral icterus
Cardiac: Regular rate
Lung: No respiratory distress, no tachypnea
MSK: No gross deformity or injuries
Skin: Good color, no pallor or jaundice, no rashes
Neuro: AO x3. EHL strength is 5 out of 5 on the left, left patellar reflexes absent, sensation intact diffusely to the lower extremities bilaterally
Psych: Calm, cooperative
Course
Orders/Labs/Results
Orders:
Orders
09/13/25 12:07
Dexamethasone Sod Phosphate [Decadron] 8 mg IV NOW STA
Gabapentin [Neurontin] 300 mg PO NOW STA
HYDROmorphone [Dilaudid] 0.5 mg IV NOW STA
Ketorolac [Toradol] 15 mg IV NOW STA
Vital Signs
Initial and Last Documented VS:
Initial Vital Signs
Temp Pulse Resp BP Pulse Ox
98.0 F 76 16 161/86 98
09/13/25 11:46 09/13/25 11:46 09/13/25 11:46 09/13/25 11:46 09/13/25 11:46
Last Documented Vital Signs
Temp Pulse Resp BP Pulse Ox
98.2 F 62 16 158/75 99
09/13/25 13:01 09/13/25 13:01 09/13/25 13:01 09/13/25 13:01 09/13/25 13:01
MDM/Problems Addressed
MDM/Problems Addressed:
Patient's pain did improve in the ED with IV medications. He was able to ambulate without assistive device in the ED. At this time he has no signs clinically of emergent spinal cord compression and thus does not require emergent MRI. Given his
pain did improve and his function is adequate at this time, we will discharge with pain medications as he is scheduled to have upcoming epidural and MRI. He will continue to follow-up through his intervention specialist, recommend outpatient
neurosurgical follow-up as well
*Pulse Oximetry
SaO2: 98
Oxygen Mode of Delivery: Room air
Patient hypoxic: no
*Critical Care Note
Total Time (30-74mins, 75-104mins- exclusive of procedures): Not Applicable
Update Note
Update Note:
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
ED Attending Note
-
Portions of this chart may have been created with voice recognition software.� Occasional wrong word or��sound alike� substitutions may have occurred due to the inherent limitations of voice recognition software.
Discharge Plan
Departure
Patient Disposition: Home (Routine Discharge)
Date of Disposition: 09/13/25
Time of Disposition: 13:45
Patient with high blood pressure during this ER visit?: No
Discharge Problem:
Lumbar radiculopathy
Instructions: Spinal Stenosis Stretching Exercises, Spinal Stenosis Strengthening Exercises
Prescriptions:
New
oxycodone 5 mg tablet
5 mg PO Q4 PRN (Reason: Pain) Qty: 20 0RF
methocarbamol 750 mg tablet
750 - 1,500 mg PO HS Qty: 20 0RF
No Action
fexofenadine 180 mg Tablet
180 mg PO DAILYPRN PRN (Reason: allergies)
losartan-hydrochlorothiazide [Hyzaar] 100-25 mg Tablet
1 tab PO DAILY
gemeqanlwqgo-yrabubmt-jbzooh Tablet
1 tab PO DAILY
cholecalciferol (vitamin D3) 50 mcg (2,000 unit) Capsule
50 mcg PO DAILY
amoxicillin-pot clavulanate 875-125 mg Tablet
1 tab PO Q12 Qty: 18 0RF
Rx Instructions:
Continue antibiotics through morning 04/07/25 then stop
Saccharomyces boulardii 250 mg Capsule
250 mg PO BID Qty: 20 0RF
Rx Instructions:
To promote gut health while on antibiotics
Ok to stop when off antibiotics.
Referrals:
Bernabe Callejas DO [Active, Neurosurgery]
Jose Hudson MD [Active, Orthopedics]
Activity Restrictions/Additional Instructions:
Call your orthopedist today
Follow-up with the neurosurgery specialist
Do not combine the muscle relaxant (methocarbamol) with the pain medicine (oxycodone)
Return to the ER if your pain is uncontrolled or he cannot walk
Interventions
Interventions:
*General Assessment Last Done: 09/13/25 11:46
*Neglect/Abuse Screening Last Done: 09/13/25 11:46
*ED COVID-19 Vaccine History Last Done: 09/13/25 11:46
*ED Influenza Vaccine History Last Done: 09/13/25 11:46
[facility] Fall Risk Assessment Tool Last Done: 09/13/25 13:01
*Nursing Disposition Last Done: 09/13/25 14:11
ED-Musculoskeletal Assessment Last Done: 09/13/25 13:01
Discharge Date and Time
Discharge Date/Time: 09/13/25 14:13
Print Language: [place]ONG K[place]
[2025-09-13] MEDS: DILAUDID 0.5 MG IV (12:27)
[2025-09-13] MEDS: TORADOL 15 MG IV (12:28)
[2025-09-13] MEDS: NEURONTIN 300 MG PO (12:28)
[2025-09-13] MEDS: DECADRON 8 MG IV (12:35)
[2025-09-13 13:01] VITALS: BP 158/75
== END 2025-09-13 14:13 | disposition home or self-care (01) ==
LOC: EMR 11:33
PROVIDERS: EMERGENCY PHYSICIAN Emergency Medicine; FAMILY PHYSICIAN Family Medicine
DX: M47.26 Other spondylosis with radiculopathy, lumbar region (principal); M48.061 Spinal stenosis, lumbar region without neurogenic claudication
CPT/HCPCS: 99284; 96374; 96375 ×2